=== PATIENT | male | born 1970 | race Two or more races ===

== ENCOUNTER 2018-05-26 21:12 | Emergency (ER) | payer MEDICAID ==
[~2018-05-26] VITALS: Ht 162.6 cm; Wt 90.9 kg
[2018-05-26 21:16] VITALS: Ht 162.6 cm; Wt 90.9 kg
[2018-05-26] MEDS ORDERED: ANTIBIOTIC (21:18)
[2018-05-26 23:33] VITALS: BP 114/68
== END 2018-05-26 23:33 | disposition home or self-care (01) ==
LOC: D.ER 21:12
DX: L03.116 Cellulitis of left lower limb (principal)